=== PATIENT | male | born 1970 | race Caucasian/White ===

== ENCOUNTER 2016-12-22 13:37 | Observation (INO) | payer OTHER ==
[2016-12-22] MEDS ORDERED: methylPREDNISolone Sodium Succinate 125 MG/2 ML SDV IVPUSH ONE (14:25)
[2016-12-22] MEDS ORDERED: Ketorolac 30 MG/ML SDV IVPUSH ONE (14:25)
[2016-12-22] MEDS ORDERED: Ondansetron 8 MG in Sodium Chloride 0.9% 50 ML IV PRN (14:26)
[2016-12-22] MEDS ORDERED: Pantoprazole 40 MG Vial IV ONE (14:30)
[2016-12-22] MEDS: Sodium Chloride 0.9% 1,000 ML IV SCH ×2 (14:34→22:54)
[2016-12-22] MEDS ORDERED: Acetaminophen 325 MG Tab PO PRN (15:39)
[2016-12-22] MEDS ORDERED: Temazepam 15 MG Cap PO PRN (15:39)
[2016-12-22] MEDS ORDERED: Enoxaparin 40 MG/0.4 ML Syringe SUBCUT SCH (16:00)
[2016-12-22 16:06] LABS: CHLORIDE,CL 102 mEq/L (98-106); SODIUM,NA 140 mEq/L (136-145)
[2016-12-22] MEDS ORDERED: fentaNYL 100 MCG/2 ML SDV IVPUSH PRN (19:35)
[2016-12-23] MEDS: Sodium Chloride 0.9% 1,000 ML IV SCH (06:53)
[2016-12-23 07:43] VITALS: BP 115/76
[2016-12-23] MEDS ORDERED: Pantoprazole 40 MG Vial IVPUSH SCH (08:00)
--- NOTE | 2016-12-23 13:28 | PCM.DCSUM1 ---
Discharge Summary - Hospital Course Free Text/Narrative:: Patient admitted for nausea and vomiting, dehydration. Patient had been ill for approximately one week with fevers, cough, body aches. Was in and had a liter of fluids days prior but was not feeling better yet. Had had intermittent vomiting and a severe headache. Just not recovering. Dr. Lambert admitted him for chest xray, lab and IV fluids. - Discharge Data Discharge Date: 12/23/16 Discharge Disposition: Home, Self-Care 01 Condition: Good - Patient Summary/Data Complications: none Hospital Course: Patient's hospital course uneventful. States still has a headache and mild nausea but no vomiting. Cough still persistent, but chest less tight. He is tolerated full liquids well. Had IV Solu Medrol, Toradol and Zofran. Labs good , still indicate a viral pattern. He does feel able to return home with meds for the cough and nausea to use as needed. No further fevers. Vital signs stable. - Patient Instructions Diet: Heart Healthy Diet Activity: As Tolerated - Discharge Plan Prescriptions/Med Rec: Ondansetron [Zofran ODT] 4 mg PO Q6H #30 tab.dis guaiFENesin/Codeine Phosphate [Guaifenesin AC Cough Syrup] 5 ml PO Q6H #240 liquid Home Medications: Home Meds Minocycline [Minocin] 50 mg PO BID PRN 12/22/16 [History] Ondansetron [Zofran ODT] 4 mg PO Q6H #30 tab.dis 12/23/16 [Rx] guaiFENesin/Codeine Phosphate [Guaifenesin AC Cough Syrup] 5 ml PO Q6H #240 liquid 12/23/16 [Rx] Referrals: Jayden Lambert MD [Primary Care Provider] - (Follow up with Dr. Lambert in one week) - Discharge Summary/Plan Comment DC Time >30 min.: No Discharge Summary/Plan Comment: Return home. Rest. Push fluids. Zofran for nausea. Guaifenesin for cough. Follow up with Dr. Lambert in one week. - General Info Date of Service: 12/23/16 Admission Dx/Problem (Free Text: Nausea/Vomiting Headache Functional Status: Reports: pain controlled, tolerating diet, ambulating - Review of Systems General: Reports: Weakness, Fatigue, Malaise. Denies: Fever HEENT: Denies: ear pain, sinus congestion, rhinitis Pulmonary: Reports: cough. Denies: shortness of breath, sputum, wheezing Cardiovascular: Denies: Chest Pain, Edema, Lightheadedness Gastrointestinal: Reports: Nausea. Denies: Abdominal pain, Constipation, Decreased appetite, Diarrhea, Vomiting Genitourinary: Reports: no symptoms Musculoskeletal: Reports: no symptoms Skin: Reports: no symptoms Neurological: Reports: Headache - Patient Data Vitals - Most Recent: Last Vital Signs Temp 98.2 F 12/23/16 07:42 Pulse 59 L 12/23/16 07:42 Resp 18 12/23/16 07:42 BP 115/76 12/23/16 07:42 Pulse Ox 97 12/23/16 07:42 Weight - Most Recent: 158 lb 1.6 oz I&O - Last 24 hours: Intake & Output 12/22/16 12/23/16 12/23/16 22:59 06:59 14:59 Intake Total 2060 1528 480 Output Total 150 1350 500 Balance 1910 178 -20 Lab Results - Last 24 hrs: Laboratory Results - last 24 hr 12/22/16 12/22/16 12/22/16 Range/Units 15:39 15:55 16:24 WBC 4.3 L (5.0-10.0) 10^3/uL RBC 4.90 (4.50-6.00) 10^6/uL Hgb 14.6 (14.0-18.0) g/dL Hct 43.4 (40.0-54.0) % MCV 88.6 (82.0-94.0) fL MCH 29.8 (27.0-32.0) pg MCHC 33.6 (33.0-38.0) g/dL RDW Coeff of Kurtis 12.9 (11.0-15.0) % Plt Count 92 L (150-400) 10^3/uL Neut % (Auto) 83.2 (35-85) % Lymph % (Auto) 12.6 (10-55) % [place] % (Auto) 4.0 (0-16) % Eos % (Auto) 0.2 (0-5) % Baso % (Auto) 0 (0-3) % Neut # (Auto) 3.55 (1.80-7.00) 10^3/uL Lymph # (Auto) 0.54 L (1.00-4.80) 10^3/uL [place] # (Auto) 0.17 (0.00-0.80) 10^3/uL Eos # (Auto) 0.01 (0.00-0.45) 10^3/uL Baso # (Auto) 0.00 10^3/uL Sodium 140 (136-145) mEq/L Potassium 4.2 (3.5-5.0) mEq/L Chloride 102 (98-106) mEq/L Carbon Dioxide 28 (21-32) mmol/L BUN 10 (7-18) mg/dL Creatinine 0.8 (0.7-1.3) mg/dL Est Cr Clr Drug Dosing 112.92 mL/min Estimated GFR (MDRD) > 60 (>=60) mL/min Glucose 95 (75-99) mg/dL Calcium 8.2 L (8.4-10.1) mg/dL Total Bilirubin 0.5 (0.0-1.0) mg/dL AST 37 (15-37) U/L ALT 48 (12-78) U/L Alkaline Phosphatase 84 (46-116) U/L C-Reactive Protein 0.3 (0.2-0.8) mg/dL Total Protein 6.7 (6.4-8.2) g/dL Albumin 3.3 L (3.4-5.0) g/dL Urine Color [place] (YELLOW) Urine Appearance Clear (CLEAR) Urine pH 5.5 (4.5-8.0) Ur Specific [place] 1.025 H (1.003-1.020) Urine Protein Trace H (NEGATIVE) mg/dL Urine Glucose (UA) Negative (NEGATIVE) mg/dL Urine Ketones 40 H (NEGATIVE) mg/dL Urine Occult Blood Negative (NEGATIVE) Urine Nitrite Negative (NEGATIVE) Urine Bilirubin Negative (NEGATIVE) Urine Urobilinogen 0.2 (0.2-1.0) EU/dL Ur Leukocyte Esterase Negative (NEGATIVE) Urine RBC Not seen (0-5) /HPF Urine WBC Not seen (0-5) /HPF Med Orders - Current: Current Medications Discontinued Medications Acetaminophen (Tylenol) 650 mg PO Q4H PRN PRN Reason: Pain (Mild 1-3)/fever Enoxaparin Sodium (Lovenox) 40 mg SUBCUT Q24H [facility] Last Admin: 03/29/17 16:35 Dose: Not Given Fentanyl (Sublimaze) 25 mcg IVPUSH Q6H PRN PRN Reason: Pain Sodium Chloride (Normal Saline) 1,000 mls @ 125 mls/hr IV ASDIRECTED [facility] Last Admin: 12/23/16 06:53 Dose: 125 mls/hr Ondansetron HCl 8 mg/ Sodium (Chloride) 54 mls @ 100 mls/hr IV Q8H PRN PRN Reason: NAUSEA Last Admin: 12/22/16 14:50 Dose: 100 mls/hr Ketorolac Tromethamine (Toradol) 30 mg IVPUSH ONETIME ONE Stop: 12/22/16 14:26 Last Admin: 12/22/16 14:40 Dose: 30 mg Methylprednisolone Sodium Succinate (Solu-Medrol) 125 mg IVPUSH ONETIME ONE Stop: 12/22/16 14:26 Last Admin: 12/22/16 14:35 Dose: 125 mg Pantoprazole Sodium (Protonix Iv) 40 mg IVPUSH Q24H [facility] Last Admin: 12/23/16 08:38 Dose: 40 mg Pantoprazole Sodium (Protonix Iv) 40 mg IV ONETIME ONE Stop: 12/22/16 14:31 Last Admin: 12/22/16 14:43 Dose: 40 mg Temazepam (Restoril) 15 mg PO BEDTIME PRN PRN Reason: Sleep - Exam General: Reports: alert, oriented HEENT: Reports: Mucous membr. moist/pink Neck: Reports: supple Lungs: Reports: Clear to auscultation, Normal respiratory effort Cardiovascular: Reports: Regular Rate, Regular Rhythm Abdomen: Reports: bowel sounds present, soft, no tenderness Skin: Reports: warm, dry Neurological: Reports: no new focal deficit *Q Meaningful Use (DIS) - VTE *Q VTE Criteria *Q: - Stroke *Q Stroke Criteria *Q: - AMI *Q AMI Criteria *Q:
== END 2016-12-23 10:00 | disposition home or self-care (01) ==
LOC: UNDOADMOB 13:37 → CC.MS 13:37
PROVIDERS: ADMIT Family Medicine; ATTEND Family Medicine
DX: R11.2 Nausea with vomiting, unspecified (principal); R51 Headache; E86.0 Dehydration; Z79.899 Other long term (current) drug therapy; Z72.0 Tobacco use
CPT/HCPCS: 36415; 71020; 80053; 81001; 85025; 86140; 96361; 96365; 96375; C9113; G0378; J1885; J2405; J2930; J7030; J7050

== ENCOUNTER 2024-02-02 04:58 | Emergency (ER) | payer OTHER ==
[2024-02-02 05:15] VITALS: BP 113/75; PULSE 76
[2024-02-02] MEDS: Fluorescein 1 MG Ophth Strip EYELF ONE (05:28)
[2024-02-02] MEDS: Tetracaine HCl/PF 0.5% 4 ML Bottle EYELF ONE (05:29)
[2024-02-02] MEDS: Distilled Water Ophth Irrig Soln 120 ML Bottle EYELF ONE (05:30)
[2024-02-02] MEDS: Diphtheria,Pertussis(Acell),Tetanus Vaccine 0.5 ML Syringe IM ONE (05:44)
[2024-02-02] MEDS: Ciprofloxacin 0.3% Ophth Soln 5 ML Bottle EYELF ONE (05:49)
== END 2024-02-02 05:55 | disposition home or self-care (01) ==
LOC: CC.ED 04:58
DX: T15.02XA Foreign body in cornea, left eye, initial encounter (principal); F17.210 Nicotine dependence, cigarettes, uncomplicated; Z23 Encounter for immunization
CPT/HCPCS: 65220; 90715; 99283-25; A9270-GY